=== PATIENT | female | born 1995 | race Caucasian/White ===

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

== ENCOUNTER 2020-06-29 14:36 | Day surgery (SDCO) | payer OTHER ==
[~2020-06-29] VITALS: Ht 177.8 cm; Wt 125.7 kg
[2020-06-29 16:23] LABS: BILIRUBIN NEGATIVE (NEGATIVE); BLOOD 1+ Ery/uL (NEGATIVE); CLARITY CLEAR (CLEAR); COLOR YELLOW (YELLOW); GLUCOSE (U) NORMAL (NORMAL); LEUKOCYTES NEGATIVE Leu/uL (NEGATIVE); NITRITE NEGATIVE (NEGATIVE); PROTEIN NEGATIVE (NEGATIVE); pH 7.5 (5.0-9.0)
[2020-06-29 16:23] LABS: BASOPHIL 0.2 % (0-2); EOSINOPHIL 1.2 % (0-5); HCT 26.6 % (37.0-47.0); HGB 8.2 g/dl (12.5-16.0); LYMPHOCYTE 16.9 % (15-48); MCH 27.1 pg (25.0-31.0); MCHC 30.8 g/dL (32.0-36.0); MCV 87.8 fL (78.0-100.0); MONOCYTE 6.1 % (0-12); MPV 9.9 fL (6.0-9.5); NRBC 0; PLT 435 K/uL (150-400); RBC 3.03 M/uL (4.20-5.40); RDW 15.9 % (11.5-14.0); WBC 10.4 K/uL (4.0-10.5)
[2020-06-29 16:29] LABS: URINARY WBC RARE
[2020-06-29 17:12] LABS: IRON % SATURATION 3.9 %SAT (20-50); RETICULOCYTE COUNT 3.3 % (1.0-2.0)
[2020-06-29 17:15] LABS: INR 1.04 (0.9-1.2); PROTHROMBIN TIME 12.9 SECONDS (11.4-13.6); PTT 28.4 SECONDS (22.2-34.7)
[2020-06-29 17:20] LABS: PRO-BNP 221 pg/mL (<125)
[2020-06-29 17:31] LABS: ALBUMIN 3.4 g/dL (3.4-5.0); BILIRUBIN - TOTAL 0.2 mg/dL (0.2-1.0); BUN/CREAT RATIO (CALC) 21.5 RATIO; CREATININE 0.65 mg/dL (0.51-0.95); FT4 (FREE T4) 0.9 ng/dL (0.76-1.46); MAGNESIUM 1.9 mg/dL (1.8-2.4); POTASSIUM 4.1 mmol/L (3.5-5.1); TOTAL PROTEIN 7.4 g/dL (6.4-8.2)
[2020-06-29 18:27] LABS: FOLIC ACID (SERUM) 16.6 ng/mL (8.6-58.9)
[2020-06-29] MEDS ORDERED: FEOSOL325 MG PO (20:11)
[2020-06-29] MEDS ORDERED: LEXAPRO 10MG TA10 MG PO (20:11)
[2020-06-29 21:27] LABS: BARBITURATES NEGATIVE (NEGATIVE); ECSTASY (MDMA) NEGATIVE (NEGATIVE); MARIJUANA (THC) POSITIVE (NEGATIVE); METHADONE NEGATIVE (NEGATIVE); OPIATES NEGATIVE (NEGATIVE)
[2020-06-29 21:28] LABS: AMPHETAMINES NEGATIVE (NEGATIVE); OXYCODONE NEGATIVE (NEGATIVE)
[2020-06-29 21:33] LABS: HCG (URINE) SCREEN NEGATIVE (NEGATIVE)
--- NOTE | 2020-06-30 00:46 | NUR ---
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 WILL XONTINUE TO MONITOR
[2020-06-30 04:15] LABS: BASOPHIL 0.3 % (0-2); EOSINOPHIL 2.7 % (0-5); HCT 26.4 % (37.0-47.0); HGB 7.9 g/dl (12.5-16.0); LYMPHOCYTE 35.8 % (15-48); MCH 26.5 pg (25.0-31.0); MCHC 29.9 g/dL (32.0-36.0); MCV 88.6 fL (78.0-100.0); MONOCYTE 7.8 % (0-12); MPV 9.8 fL (6.0-9.5); NEUTROPHIL 52.9 % (41-80); NRBC 0; PLT 419 K/uL (150-400); RBC 2.98 M/uL (4.20-5.40); WBC 9.8 K/uL (4.0-10.5)
[2020-06-30 04:26] LABS: BUN/CREAT RATIO (CALC) 16.1 RATIO; CREATININE 0.62 mg/dL (0.51-0.95)
--- NOTE | 2020-06-30 04:49 | NUR ---
PT NA DOWN TO 41 BUT CAME RIGHT BACK UP TO HR OF 70s. 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
[2020-07-01 04:49] LABS: BUN/CREAT RATIO (CALC) 18.5 RATIO; CREATININE 0.65 mg/dL (0.51-0.95)
[2020-07-01 05:01] LABS: BASOPHIL 0.4 % (0-2); HCT 26.7 % (37.0-47.0); MCH 26.8 pg (25.0-31.0); MCV 89.6 fL (78.0-100.0); MONOCYTE 8.3 % (0-12); NEUTROPHIL 49.6 % (41-80); NRBC 0.2; PLT 438 K/uL (150-400); RBC 2.98 M/uL (4.20-5.40); RDW 15.8 % (11.5-14.0); WBC 10.6 K/uL (4.0-10.5)
--- NOTE | 2020-07-01 15:07 | NUR ---
07/01/20 Patient was transferred to [facility].
== END 2020-07-01 12:32 | disposition other institution (70) ==
LOC: FER 14:36 → FTCU 18:33
PROVIDERS: Emergency Medicine; Internal Medicine; Nurse Practitioner; Physician Assistant; ADMIT Internal Medicine
DX: I48.91 Unspecified atrial fibrillation (principal); N92.0 Excessive and frequent menstruation with regular cycle; D50.0 Iron deficiency anemia secondary to blood loss (chronic); N94.6 Dysmenorrhea, unspecified; E66.01 Morbid (severe) obesity due to excess calories; Z68.39 Body mass index [BMI] 39.0-39.9, adult; Z91.5 Personal history of self-harm; Z79.899 Other long term (current) drug therapy; Z20.822 Contact with and (suspected) exposure to COVID-19
CPT/HCPCS: 36415; 71045; 80048; 80053; 80305; 81001; 82607; 82728; 82746; 83540; 83550; 83735; 83880; 84439; 84443; 84484; 84703; 85025; 85610; 85730; 93005; G0378; J1650; J2916; U0002